=== PATIENT | male | born 1990 | race Caucasian/White ===

== ENCOUNTER → 2018-01-05 10:28 | Outpatient (CLI) | payer SELFPAY ==
[2018-01-05 12:29] LABS: Hematocrit 44.4 % (40-54); Hemoglobin 15.2 g/dl (13.0-16.5); Mean Corp Hgb Conc 34.2 g/gl (32-36); Mean Corpuscular Volume 96.5 fL (80-94); Mean Platelet Vol. 12.5 fl (6.2-12.0); Platelet Count 79 K/mm3 (150-450); RBC Distribution Width CV 12.6 % (11.6-14.6); Scan Indicated on CBC? Y/N NO; White Blood Count 3.8 K/mm3 (4.4-11.0)
[2018-01-05 13:04] LABS: Valproic Acid (Depakene) Level 146 ug/mL (50-100)
[2018-01-05 13:29] LABS: AST(SGOT) 27 U/L (15-37); Alanine Aminotransfer ALT/SGPT 25 U/L (16-61); Albumin, Serum 3.8 g/dL (3.2-5.0); Alkaline Phosphatase 46 U/L (45-117); Anion Gap 12 (5-15); BUN 19 mg/dL (7-18); BUN/Creat Ratio 28.2 RATIO (10-20); Calcium,Total 9.2 mg/dL (8.5-10.1); Chloride 104 mmol/L (98-107); Creatinine, Serum 0.67 mg/dL (0.70-1.30); EST Glomerular Filtration Rate 151 mL/min (>60); Est Glom Filt Rate - Afr Amer 183 mL/min (>60); Globulin 3.9 g/dL (2.2-4.2); Glucose 64 mg/dL (74-106); Potassium 4.6 mmol/L (3.5-5.1); Protein, Total 7.7 g/dL (6.4-8.2); Sodium Level 142 mmol/L (136-145)
== END ==
PROVIDERS: Family Provider Family Medicine; PCP Family Medicine; Visit Provider Family Medicine
DX: G40.909 Epilepsy, unspecified, not intractable, without status epilepticus (principal)
CPT/HCPCS: 36415; 80053; 80164; 85027

== ENCOUNTER 2018-02-14 08:29 | Day surgery (SDC) | payer BC, SELFPAY ==
[2018-02-14] VITALS (13 sets, daily range): BP systolic 96–110; BP diastolic 56–89; PULSE 36–52; RESP 14–16; TEMP 35.8–36.6; O2SAT 92–100; BMI 19.3
--- NOTE | 2018-02-14 | IMM_PTH ---
PATIENT: ADILSON GREENE LOC: EN U#:[id number] AGE/SX: 27/M ROOM: RE02/14/[address]: Dr. Jimy Beyer MD : 1990 BED: DIS: 02/14/2018 SPEC #: [id number] RECD: 02/15/18 13:52 STATUS: WILBUR RESheryl #: [id number] ALEXA: 02/14/18 00:[address]: iJmy Beyer DEPT: IMMUNOHISTOCHEMISTRY RECD BY: Ayesha Pisano ENTERED: 02/15/18 13:52 SP TYPE: IMMUNO OTHR DR: Dr. Phi Oneal MD Tissues: Stomach, NOS Procedures: H Pylori (initial) PHYSICIAN & INSTITUTION [place] [address] SPECIMEN INFORMATION: Tissue Source: Gastric antrum biopsy Clinical Info: Reflux, vomiting Specimen Number: [id number] CPT code: 48271 METHODOLOGY: Deparaffinized sections of prefer/formalin-fixed tissue or PAP/DQ stained slides are incubated with monoclonal/polyclonal antibodies/oligonucleotide probes. Localization is made via biotin free immunoperoxidase method. Appropriate controls are performed and reacted as expected. Results on target cell population are indicated in the following table: RESULTS: ANTIBODY / CLONE RESULT H Pylori (polyclonal) negative These tests were developed and their performance characteristics determined by [facility]. They may not have been cleared or approved by the U.S. Food and Drug Administration. The FDA has determined that such clearance or approval is not necessary. INTERPRETATION: Gastric antrum, biopsy: Negative for Helicobacter pylori organisms. PORSCHE:mago 02/16/18
--- NOTE | 2018-02-14 09:30 | EGD_PTH ---
PATIENT: ADILSON GREENE LOC: EN U#:[id number] AGE/SX: 27/M ROOM: RE02/14/[address]: Dr. Jimy Beyer MD : 1990 BED: DIS: 02/14/2018 SPEC #: [id number] RECD: 02/14/18 10:27 STATUS: WILBUR MAGDALENE #: [id number] ALEXA: 02/14/18 09:[address]: Jimy Beyer DEPT: SURGICAL PATHOLOGY RECD BY: Carrol Nobles ENTERED: 02/14/18 12:17 SP TYPE: EGD BIOPSY OT DR: Dr. Phi Oneal MD Tissues: Gastric mucous membrane Procedures: Surgery Specimen Level IV HEADER OPERATION: EGD with general anesthesia PRE-OP DIAGNOSIS: Reflux, vomiting TISSUE SUBMITTED: Biopsy gastric antrum MICROSCOPIC DIAGNOSIS Gastric antrum, biopsy: Mild gastritis. See microscopic description and comment. SJ:mago 02/15/18 COMMENT The results of immunohistochemistry for Helicobacter pylori will be reported separately ([id number]). MICROSCOPIC DESCRIPTION Slides are reviewed. The specimen shows fragments of gastric mucosa with chronic inflammatory cell infiltrates in the lamina propria consisting of lymphocytes and plasma cells, consistent with mild chronic gastritis. GROSS DESCRIPTION Received in fixative is one container labeled with the patient's name and designated biopsy gastric antrum. The specimen consists of one irregular fragment of light telles soft tissue that measures 0.8 x 0.2 x 0.1 cm. The specimen is totally submitted in one cassette. / SJ:rg 02/14/18 TC:5 CPT: 03927
--- NOTE | 2018-02-14 09:52 | OP.ENDO_ITS ---
Patient Name: Richard Moore Procedure Date: 02/14/2018 8:59 AM Date of : 1990 Age: 27 Procedure: Upper GI endoscopy Indications: Gastro-esophageal reflux disease, Persistent vomiting, Persistent vomiting of unknown cause Providers: Jimy Beyer MD Referring MD: Jimy Beyer MD Medicines: See the Anesthesia note for documentation of the administered medications Complications: No immediate complications. Procedure: Pre-Anesthesia Assessment: - Prior to the procedure, a History and Physical was performed, and patient medications and allergies were reviewed. The patient's tolerance of previous anesthesia was also reviewed. The risks and benefits of the procedure and the sedation options and risks were discussed with the patient. All questions were answered, and informed consent was obtained. Prior Anticoagulants: The patient has taken no previous anticoagulant or antiplatelet agents. ASA Grade Assessment: III - A patient with severe systemic disease. After reviewing the risks and benefits, the patient was deemed in satisfactory condition to undergo the procedure. After obtaining informed consent, the endoscope was passed under direct vision. Throughout the procedure, the patient's blood pressure, pulse, and oxygen saturations were monitored continuously. The gastroscope was introduced through the mouth, and advanced to the second part of duodenum. The upper GI endoscopy was accomplished without difficulty. The patient tolerated the procedure well. Scope In: 9:38:13 AM Scope Out: 9:42:57 AM Total Procedure Duration Time 0 hours 4 minutes 44 seconds Findings: The Z-line was regular and was found 40 cm from the incisors. No biopsies or other specimens were collected for this exam. Patchy mildly erythematous mucosa without bleeding was found in the prepyloric region of the stomach. Biopsies were taken with a cold forceps for Helicobacter pylori testing. The examined duodenum was normal. No biopsies or other specimens were collected for this exam. Impression: - Z-line regular, 40 cm from the incisors. No specimens collected. - Erythematous mucosa in the prepyloric region of the stomach. Biopsied. - Normal examined duodenum. No specimens collected. Recommendation: - Discharge patient to home. - Resume previous diet. - Continue present medications. - Await pathology results. - Repeat upper endoscopy PRN for surveillance based on pathology results. - Return to my office PRN. Procedure Code(s): --- Professional --- 61465, Esophagogastroduodenoscopy, flexible, transoral; with biopsy, single or multiple Diagnosis Code(s): --- Professional --- K31.89, Other diseases of stomach and duodenum K21.9, Gastro-esophageal reflux disease without esophagitis R11.10, Vomiting, unspecified CPT copyright 2017 [employer]. All rights reserved. The codes documented in this report are preliminary and upon cotton classer aide review may be revised to meet current compliance requirements. MD Jimy Amaro MD 02/14/2018 9:52:42 AM This report has been signed electronically. Number of Addenda: 0 Note Initiated On: 02/14/2018 8:59 AM
== END 2018-02-14 11:33 | disposition home or self-care (01) ==
LOC: EN 08:30 → AC 08:32
PROVIDERS: Family Provider Family Medicine; PCP Family Medicine; Referring Provider Surgery; Visit Provider Surgery
PROC: 0DJ08ZZ Inspection of Upper Intestinal Tract, Via Natural or Artificial Opening Endoscopic (ICD-10-PCS; CPT 43235; principal; 2018-02-14 09:25)
DX: K29.70 Gastritis, unspecified, without bleeding (principal); K21.9 Gastro-esophageal reflux disease without esophagitis; G40.813 Lennox-Gastaut syndrome, intractable, with status epilepticus; Z79.899 Other long term (current) drug therapy
CPT/HCPCS: 43239; 88305; 88342; J7120

== ENCOUNTER → 2018-05-24 10:05 | Outpatient (CLI) | payer BC, SELFPAY ==
[2018-02-14 08:58] VITALS: BMI 19.3
[2018-05-24 12:28] LABS: Hematocrit 42.2 % (40-54); Hemoglobin 14.2 g/dl (13.0-16.5); Mean Corp Hgb Conc 33.6 g/gl (32-36); Mean Corpuscular Hgb 33.1 pg (27.0-32.0); Mean Corpuscular Volume 98.4 fL (80-94); Mean Platelet Vol. 11.9 fl (6.2-12.0); Platelet Count 112 K/mm3 (150-450); RBC Distribution Width CV 12.8 % (11.6-14.6); RBC Distribution Width SD 44.7 fl (35.1-43.9); Red Blood Count 4.29 M/mm3 (4.6-6.2); White Blood Count 3.8 K/mm3 (4.4-11.0)
[2018-05-24 12:33] LABS: Scan Indicated on CBC? Y/N NO
[2018-05-24 12:56] LABS: Valproic Acid (Depakene) Level 110 ug/mL (50-100)
[2018-05-24 13:03] LABS: Anion Gap 11 (5-15); BUN 20 mg/dL (7-18); BUN/Creat Ratio 27.8 RATIO (10-20); Calcium,Total 9.2 mg/dL (8.5-10.1); Chloride 108 mmol/L (98-107); Creatinine, Serum 0.72 mg/dL (0.70-1.30); EST Glomerular Filtration Rate 140 mL/min (>60); Est Glom Filt Rate - Afr Amer 169 mL/min (>60); Glucose 60 mg/dL (74-106); Potassium 4.5 mmol/L (3.5-5.1); Sodium Level 142 mmol/L (136-145)
== END ==
PROVIDERS: Family Provider Family Medicine; PCP Family Medicine; Visit Provider Family Medicine
DX: G40.909 Epilepsy, unspecified, not intractable, without status epilepticus (principal)
CPT/HCPCS: 36415; 80048; 80164; 85027

== ENCOUNTER 2022-11-06 14:27 | Emergency (ER) | payer BC, SELFPAY ==
[2022-11-06 14:29] VITALS: BP 106/86; PULSE 84; RESP 18; TEMP 36.6; O2SAT 96
[2022-11-06 14:38] VITALS: BMI 21.7
[2022-11-06 14:56] VITALS: O2SAT 97
--- NOTE | 2022-11-06 14:56 | EKG12_ITS ---
Test Reason : FEVER Blood Pressure : / mmHG Vent. Rate : 076 BPM Atrial Rate : 076 BPM P-R Int : 152 ms QRS Dur : 100 ms QT Int : 344 ms P-R-T Axes : 077 057 063 degrees QTc Int : 387 ms Normal sinus rhythm Incomplete right bundle branch block Borderline ECG Confirmed by YULY TABARES, GRACE ([id number]), newspaper copy editor SIERRA HERRERA ([id number]) on 11/09/2022 12:46:07 PM Referred By: Confirmed By:GRACE EMERY MD
--- NOTE | 2022-11-06 14:56 | EX.ED.DYSGE1 ---
HPI History of Present Illness Chief Complaint: Fever Detail of Chief Complaint: Subjective fever. Informant: parent Onset/Context/Timing Onset: Days Context: Gradual Onset Timing: Continuous Current Severity: Mild Maximum Severity: Mild Narrative Narrative: 32-year-old male nonverbal, MR, autism, seizure disorder. Mom thinks he has had a subjective fever last 3 days. He has felt warm. He has had decreased activity. Her thermometer is not working at home. States this is not his baseline. She did treat him with Tylenol prior to arrival today. No vomiting or diarrhea. Prior similar symptoms: Yes Recent Illness/Hospitalization: No PFSH PFS Medical History Matthias-Gastaut syndrome, intractable, with status epilepticus Seizure Home Medications divalproex 250 mg tablet,delayed release 1,000 mg PO BIDCM 09/26/15 [History Last Taken 02/14/18 06:00] diazepam 5 mg tablet (Valium) 2.5 mg PO QHS PRN anxiety 11/06/22 [History Last Taken Unknown] divalproex 250 mg tablet,extended release 24 hr mg PO 11/06/22 [History Last Taken Unknown] doxycycline hyclate 100 mg capsule 100 mg PO BID 7 days #14 caps 11/06/22 [Rx Last Taken Unknown] Allergy/AdvReac Type Severity Reaction Status Date / Time TOPAMA AdvReac Mild Rash Uncoded 11/06/22 14:31 Family History Father Migraine Surgical History History of lung surgery Status post VNS (vagus nerve stimulator) placement Social History household members: family Smoking Status: Never smoker ROS ROS ED ROS Narrative Per mom subjective fever only. Patient is nonverbal. Review of Systems ROS Unobtainable: due to mental status; Denies due to encephalopathy Constitutional Constitutional ED: Reports fever(s) and subjective; Denies chills EXAM Physical Exam Narrative Exam Narrative: 32-year-old male lying in bed. Eyes are open. Does not speak. Mom at bedside. Vital signs are stable afebrile. Pulse ox 96% on room air no signs of hypoxia. HEENT exam left TM severe by wax. Right normal. Posterior pharynx moist. No erythema or exudate. No stridor or drooling. Neck nontender no lymphadenopathy. No meningismus. Lungs clear to auscultation bilaterally. Heart regular rhythm rate about 80 no murmur. Chest wall nontender. Abdomen soft nontender. Moves all 4 extremities. Nontender no edema. No rashes. Neurologically he is awake. His eyes are open. He normally does not speak this is his baseline. Const Vital Signs: 11/06/22 14:29 Temperature 97.8 F Temperature Source Temporal Pulse Rate 84 Respiratory Rate 18 Blood Pressure 106/86 H Blood Pressure Mean 92 Pulse Ox 96 Oxygen Delivery Method Room Air Positive well nourished and well developed; Negative for obese, cachectic, contractures or unkempt General Appearance ED: well developed and NAD; Negative for unkempt, cachectic, contractures, cyanotic, diaphoretic or pallor Nutritional Appearance: Negative for cachectic or obese HEENT Reports moist mucous membranes; Denies dry mucous membranes Negative for trauma or tenderness Mouth ED: No dry mucous membranes Mouth: No dry mucous membranes Eyes PERRL and EOMs intact bilaterally General Eye ED: Negative for pale conjunctiva or scleral icterus Neck no lymphadenopathy, supple and no JVD General: Negative for tenderness Chest Wall inspection of chest normal and palpation of chest normal Chest: Negative for other Resp normal respiratory effort and clear to auscultation bilaterally Effort and Inspection: Negative for retractions Auscultation: Negative for rales, rhonchi or wheezes Cardio regular rhythm, S1 normal heart sound, S2 normal heart sound and no murmurs GI normal to inspection, nondistended, normoactive bowel sounds, non-tender, non-distended and no masses Inspection: Negative for abdominal distention Auscultation: normoactive bowel sounds Palpation: soft; Negative for tender or guarding Bladder / Kidney Exam: No other Back/Spine no CVA tenderness Back/Spine Narrative: Normal exam. Of the back. No rash. Prior well-healed left posterior lung scar. General Back: Negative for CVA tenderness Cervical Spine: Negative for cervical spine tenderness Thoracic Spine / Upper Back: Negative for thoracic spinal tenderness Lumbar Spine / Lower Back: Negative for lumbar spinal tenderness Extremity normal to inspection General Extremety ED: Yes tenderness; Negative for edema General Extremity: Negative for edema Neuro No oriented x3 and CN's II-XII intact bilaterally Neuro Narrative: Patient nonverbal. Does not follow commands. He is awake. His eyes open. He looks about the room. He is moving all 4 extremities. Sensorium / Orientation: alert Psych Appearance: Negative for unkempt Attitude: No agitated Mood & Affect: Negative for depressed, anxious or tearful Skin no rashes or lesions noted, no wounds and skin turgor normal General Skin Exam: elasticity normal; Negative for jaundice or pallor Lesions: No lesion noted Rashes: No rashes noted Trauma: Negative for abrasion Wounds: Negative for wounds noted MDM MDM MDM Narrative Medical decision making narrative: 82-year-old nonverbal male with history of seizure disorder and autism. With a subjective fever last several days at home. Will undergo a infectious work-up. His exam is benign. Repeat exam he is doing well at 5 PM. Abdomen is completely benign and nontender. He is awake. Long discussion with his mom and family at bedside. She would prefer to take him home. She said he can take medications. We discussed the possibility of an early pneumonia in his right lower lobe. He has had prior surgery on his left lung, empyema there is no signs of that. He had a rash on his right thigh which appears to be secondary to local reaction to an insect bite. It does not specifically look like Lyme disease at this time. She would like him to be treated as such. We will choose doxycycline 1 pill twice a day for 7 days. First dose given in the ER. A dose of Diflucan to use after the antibiotic to prevent a fungal infection which he had in the past. She knows to return if he is getting worse or follow-up with his primary care physician Dr. Benson Tobar if not improving. Patient History & Record Review Discussion w/independent historian: Family Additional record(s) reviewed:: Prior inpatient record, Prior outpatient record, Prior ED visit and Prior labs Lab Data Attestation: I reviewed the patient's lab results. Lab results narrative: CBC shows white count 5.7. H&H 14 and 42. Platelets are low at 63,000. Electrolytes show sodium 134. Gap of 5. Normal BUN and creatinine 18 and 1. Lactic acid is normal at 1.9. Glucose 148. PT and INR 15 and 1. PTT is 33. Liver enzymes unremarkable. Urinalysis normal. Labs: Laboratory Results - last 24 hr 11/06/22 11/06/22 15:09 15:40 WBC 5.7 RBC 4.63 Hgb 14.4 Hct 42.7 MCV 92.2 MCH 31.1 MCHC 33.7 RDW Std Deviation 42.9 RDW Coeff of Trang 12.8 Plt Count 63 L MPV 12.2 H Immature Gran % (Auto) 0.500 Neut % (Auto) 64.7 Lymph % (Auto) 14.4 L Dickson % (Auto) 19.9 H Eos % (Auto) 0.0 Baso % (Auto) 0.5 Absolute Neuts (auto) 3.7 Absolute Lymphs (auto) 0.82 L Nucleated RBC % 0 Differential Comment SEE COMMENT Platelet Estimate MOD DEC RBC Morphology N CHROM Anisocytosis RARE Macrocytosis RARE PT 15.4 H INR 1.2 APTT 33.3 Sodium 134 L Potassium 4.1 Chloride 102 Carbon Dioxide 27.0 Anion Gap 5 BUN 18 Creatinine 1.00 Estim Creat Clear Calc 92.65 Est GFR (MDRD) Af Amer 112 Est GFR (MDRD) Non-Af 93 BUN/Creatinine Ratio 18.0 Glucose 148 H Lactic Acid 1.9 Calcium 8.8 Total Bilirubin 0.30 AST 117 H ALT 107 H Alkaline Phosphatase 52 Total Protein 6.8 Albumin 2.9 L Globulin 3.9 Albumin/Globulin Ratio 0.7 L Urine Color Yellow Urine Clarity Clear Urine pH 6.0 Ur Specific [place] 1.020 Urine Protein 30 H Urine Glucose (UA) Normal Urine Ketones 5 H Urine Occult Blood 25 H Urine Nitrite Negative Urine Bilirubin Negative Urine Urobilinogen 4 H Ur Leukocyte Esterase Negative Urine RBC 0-5 SEEN Urine WBC 0 SEEN Ur Squamous Epith Cells 0 SEEN Urine Bacteria 0 SEEN Urine Mucus 0 SEEN Radiography Chest X-Ray - ED: 1 View, Read by ED Physician, Read by Radiologist, Heart, Mediastinum, Bony Structures, Chronic Changes and Left Infiltrate Diagnostic Testing: Clinical Impression(s) from Imaging Studies Chest X-Ray 11/06/22 15:50 IMPRESSION: Ill-defined increased density in the right lung base not present previously. This is most likely atelectasis or infiltrate. Consider additional evaluation with CT scan. Electronically Signed: Gary Rea MD at 16:08 EDT , Chest x-ray consistent with right lower lobe pneumonia. Discharge Plan Triage Chief Complaint: Fever Other Complaint: Fatigue ED Provider: Abdirahman Doyle Dx/Rx/DC Orders Prescriptions: New doxycycline hyclate 100 mg capsule 100 mg PO BID 7 Days Qty: 14 0RF No Action divalproex 250 MG tablet 1,000 mg PO BIDCM divalproex 250 mg tablet extended release 24 hr PO Patient Comments: TAKE 4 TABLETS BY MOUTH TWICE DAILY diazepam [Valium] 5 mg tablet 2.5 mg PO QHS PRN (Reason: anxiety) Primary Care Provider: Sai Oneal Referrals: Sai Oneal MD [Primary Care Provider] - 3-5 Days Activity Restrictions/Additional Instructions: Plenty of fluids and rest. Alternate Tylenol and Motrin for fever. Also for body aches. Follow-up with your doctor if not improving. Return if worse. Lab work looks good. Just may be secondary to an early right lower lobe pneumonia or a virus. Unlikely but possible to be Lyme disease. Doxycycline 1 pill twice a day for the next week. Disposition Disposition: Home, Self Care
--- NOTE | 2022-11-06 15:08 | NURSING ---
NO OLD EKGS
[2022-11-06 15:23] LABS: Absolute Lymphocyte Count 0.82 X10^3/uL (0.83-4.51); Absolute Neutrophil Count 3.7 X10^3/uL (2.0-7.7); Basophil# 0.03 X10^3/uL; Basophil% 0.5 % (0-1); Hematocrit 42.7 % (40-54); Hemoglobin 14.4 g/dL (13.0-16.5); Lymphocyte # 0.82 X10^3/ul (0.83-4.51); Lymphocyte % 14.4 % (19-41); Mean Corp Hgb Conc 33.7 g/dL (32-36); Mean Corpuscular Hgb 31.1 pg (27.0-32.0); Mean Corpuscular Volume 92.2 fL (80-94); Mean Platelet Vol. 12.2 fl (6.2-12.0); Monocyte# 1.13 X10^3/uL; Monocyte% 19.9 % (0-10); NRBC Flagged by Analyzer 0 % (0-5); Neutrophil # 3.67 X10^3/uL (2.7-7.7); Neutrophil % 64.7 % (47-70); POSITIVE COUNT YES; Platelet Count 63 K/mm3 (150-450); RBC Distribution Width CV 12.8 % (11.6-14.6); RBC Distribution Width SD 42.9 fl (35.1-43.9); Red Blood Count 4.63 M/mm3 (4.6-6.2); White Blood Count 5.7 K/mm3 (4.4-11.0)
[2022-11-06 15:35] LABS: International Normalized Ratio 1.2; Prothrombin Time (Protime)PT. 15.4 SECONDS (11.7-14.9)
[2022-11-06 15:36] LABS: Partial Thromboplast Time 33.3 Seconds (24.1-36.2)
[2022-11-06 15:49] LABS: Lactic Acid 1.9 mmol/L (0.4-1.9)
--- NOTE | 2022-11-06 15:50 | RAD_ITS ---
STUDY: X-RAY CHEST REASON FOR EXAM: Male, 32 years old. fever TECHNIQUE: Single AP portable view of the chest. COMPARISON: 01/02/2016. FINDINGS: Normal lung volumes. Ill-defined increased density in the right lung base not present previously. This is most likely atelectasis or infiltrate. Consider additional evaluation with CT scan. Left lung clear. Stable left-sided electronic device with lead extending to the left neck. Normal size heart. Normal mediastinum and chase. Normal visualized pulmonary arteries. Normal visualized aortic arch and descending thoracic aorta. Normal visualized thoracic spine. Normal visualized ribs, clavicles, and shoulders. There is no demonstrated abnormality of the visualized soft tissue structures of the upper abdomen. RAD/Chest 1 View (Portable) IMPRESSION: Ill-defined increased density in the right lung base not present previously. This is most likely atelectasis or infiltrate. Consider additional evaluation with CT scan. Electronically Signed: Gary Rea MD at 16:08 EDT ,
[2022-11-06 15:52] LABS: Differential Indicated SCAN CRITERIA MET
[2022-11-06 15:52] LABS: Bacteria 0 SEEN /hpf (None Seen); Mucous, Urine 0 SEEN /hpf (<or=2+); Squamous Epithelial Cells - UA 0 SEEN /hpf (0-5); White Blood Cells 0 SEEN /hpf (0-5)
[2022-11-06] MEDS: 0.9% Normal Saline 1,000 ML 999 ML IV (15:53)
[2022-11-06 15:54] LABS: ALB/GLOB Ratio 0.7 RATIO (0.9-2.4); AST(SGOT) 117 U/L (15-37); Alanine Aminotransfer ALT/SGPT 107 U/L (16-61); Albumin, Serum 2.9 g/dL (3.2-5.0); Alkaline Phosphatase 52 U/L (45-117); Anion Gap 5 (5-15); Anisocytosis RARE; BUN 18 mg/dL (7-18); Calcium,Total 8.8 mg/dL (8.5-10.1); Chloride 102 mmol/L (98-107); EST Glomerular Filtration Rate 93 mL/min (>60); Est Glom Filt Rate - Afr Amer 112 mL/min (>60); Estimated Creatinine Clearance 92.65 ml/min; Globulin 3.9 g/dL (2.2-4.2); Glucose 148 mg/dL (74-106); Macrocytosis RARE; Platelet Estimate MOD DEC (ADEQ); Potassium 4.1 mmol/L (3.5-5.1); Protein, Total 6.8 g/dL (6.4-8.2); Red Cell Morphology N CHROM NORMAL (NORM C&C); Sodium Level 134 mmol/L (136-145)
[2022-11-06 15:58] LABS: Color, Urine Yellow (Yellow); Glucose, Dipstick Normal (Normal); Ketone-Dipstick 5 mg/dl (Negative); Leukocyte Esterase-Dipstick Negative /ul (Negative); Nitrite-Dipstick Negative (Negative); Occult Blood-Urine 25 /ul (Negative); Protein-Dipstick 30 mg/dl (Negative); Urine Bilirubin Dipstick Negative (Negative); Urine Clarity Clear (Clear); Urine Urobilinogen 4 mg/dl (Normal)
[2022-11-06 16:29] LABS: Red Blood Cells-Urine 0-5 SEEN /hpf (0-5)
[2022-11-06] MEDS: Doxycycline 100 MG CAPSULE PO (17:12)
[2022-11-06 17:35] VITALS: PULSE 68; RESP 18
[2022-11-06 17:36] VITALS: RESP 16; O2SAT 97
== END 2022-11-06 17:37 | disposition home or self-care (01) ==
PROVIDERS: Emergency Provider Emergency Medicine; PCP Family Medicine; Visit Provider Emergency Medicine
DX: R50.9 Fever, unspecified (principal); G40.901 Epilepsy, unspecified, not intractable, with status epilepticus; F84.0 Autistic disorder; R21 Rash and other nonspecific skin eruption; R53.83 Other fatigue
CPT/HCPCS: 71045; 80053; 81001; 83605; 85025; 85610; 85730; 87040; 87086; 93005; 96360; 99285

== ENCOUNTER → 2022-12-01 | Outpatient (CLI) | payer BC, SELFPAY ==
[2022-12-01 12:00] LABS: Bacteria 0 SEEN /hpf (None Seen); Mucous, Urine 0 SEEN /hpf (<or=2+); Red Blood Cells-Urine 0 SEEN /hpf (0-5); Squamous Epithelial Cells - UA 0 SEEN /hpf (0-5); White Blood Cells 0 SEEN /hpf (0-5)
[2022-12-01 15:32] LABS: Absolute Neutrophil Count 2.1 X10^3/uL (2.0-7.7); Basophil# 0.03 X10^3/uL; Basophil% 0.6 % (0-1); Color, Urine Yellow (Yellow); Eosinophil# 0.05 X10^3/uL; Eosinophils% 0.9 % (0-5); Glucose, Dipstick Normal (Normal); Hematocrit 43.4 % (40-54); Hemoglobin 14.3 g/dL (13.0-16.5); Ketone-Dipstick Negative (Negative); Leukocyte Esterase-Dipstick Negative /ul (Negative); Lymphocyte % 49.6 % (19-41); Mean Corp Hgb Conc 32.9 g/dL (32-36); Mean Corpuscular Hgb 31.5 pg (27.0-32.0); Mean Corpuscular Volume 95.6 fL (80-94); Mean Platelet Vol. 12.1 fl (6.2-12.0); Monocyte# 0.53 X10^3/uL; Monocyte% 9.7 % (0-10); NRBC Flagged by Analyzer 0 % (0-5); Neutrophil # 2.11 X10^3/uL (2.7-7.7); Neutrophil % 38.8 % (47-70); Nitrite-Dipstick Negative (Negative); Occult Blood-Urine Negative /ul (Negative); Platelet Count 138 K/mm3 (150-450); Protein-Dipstick Negative (Negative); RBC Distribution Width CV 13.9 % (11.6-14.6); RBC Distribution Width SD 49.2 fl (35.1-43.9); Red Blood Count 4.54 M/mm3 (4.6-6.2); Urine Bilirubin Dipstick Negative (Negative); Urine Clarity Clear (Clear); Urine Urobilinogen Normal (Normal); White Blood Count 5.4 K/mm3 (4.4-11.0)
[2022-12-01 16:10] LABS: ALB/GLOB Ratio 0.8 RATIO (0.9-2.4); AST(SGOT) 27 U/L (15-37); Alanine Aminotransfer ALT/SGPT 23 U/L (16-61); Albumin, Serum 3.4 g/dL (3.2-5.0); Alkaline Phosphatase 63 U/L (45-117); Anion Gap 3 (5-15); BUN 16 mg/dL (7-18); BUN/Creat Ratio 20.5 RATIO (10-20); Calcium,Total 9.2 mg/dL (8.5-10.1); Chloride 104 mmol/L (98-107); Creatinine, Serum 0.78 mg/dL (0.70-1.30); EST Glomerular Filtration Rate 124 mL/min (>60); Est Glom Filt Rate - Afr Amer 149 mL/min (>60); Glucose 90 mg/dL (74-106); Potassium 4.1 mmol/L (3.5-5.1); Protein, Total 7.4 g/dL (6.4-8.2); Sodium Level 137 mmol/L (136-145)
[2022-12-01 17:06] LABS: Valproic Acid (Depakene) Level 129 ug/mL (50-100)
== END | disposition home or self-care (01) ==
LOC: MFPLAB 11:57
PROVIDERS: PCP Family Medicine; Visit Provider Family Medicine
DX: R74.01 Elevation of levels of liver transaminase levels (principal); G40.909 Epilepsy, unspecified, not intractable, without status epilepticus; D69.6 Thrombocytopenia, unspecified
CPT/HCPCS: 36415; 80053; 80164; 81001; 81002; 85025; 86618